=== PATIENT | male | born 1970 | race Caucasian/White ===

== ENCOUNTER 2025-02-26 19:13 | Inpatient (IN) | payer OTHER ==
[~2025-02-26] VITALS: Ht 180.3 cm; Wt 74.0 kg
[2025-02-26] MEDS: NITROGLYCERIN 0.4 MG SL TAB SL ONE (19:30)
[2025-02-26] MEDS: ASPirin-EC 325mg tab PO ONE (19:30)
[2025-02-26 19:57] LABS: Hematocrit 44.4 % (41.0-53.0); Hemoglobin 15.7 g/dL (13.5-17.5); Mean Corpuscular Hemoglobin 32.0 pg (28.0-32.0); Mean Corpuscular Volume 90.7 fL (80.0-100.0); Nucleated Red Blood Cells % 0.1 %
--- NOTE | 2025-02-26 19:58 | ED.PDOC ---
HPI Comments HPI: 55 y/o M, with PMHx of DM present to the ED for CC of chest pain. Patient states, he has been experiencing intermittent substernal chest pain x1 year which intensified this morning (02/26/25) at 0500 radiating to his left arm. Patient reports, when pain intensified he suffered a syncopal episode while in bed, waking up and having had x1 episode of emesis for which he cannot recall the events of. At the time of syncopal episode patient described the chest pain to be 10/10 on the pain scale and "burning in sensation". Patient denies shortness of breath, cough, abdominal pain, or palpitations. No other symptoms or modifying factors are presents at this time. Initial Vitals BP: HR: RR: O2 Sat: Temp: Past Medical history: DM Past Surgical history: Sharpnel removal from the body Medications: METFORMIN Social History: Denies smoking, ETOH, and drug use. Allergies: NKDA HPI: Poor Historian. HAS PAIN IMPROVED SIGNIFICANTLY BY THE TIME I EVALUATED THE PATIENT. CURRENTLY 07/16. REVIEW OF SYSTEMS: CONSTITUTIONAL: Denies acute: fever, diaphoresis, chills, generalized weakness. HEAD: Denies acute: headache, photophobia Eyes: Denies acute: Double vision, vision loss, eye pain, eye discharge. EARS: Denies acute: tinnitus, hearing loss, ear discharge, ear pain, THROAT: Denies acute: sore throat, swelling, difficulty swallowing , pain with swallowing, change in voice. NECK: Denies acute: neck pain, neck swelling, stiff neck. HEART: Denies acute : palpitations, LUNGS: Denies acute: SOB, wheezing, cough, hemoptysis ABDOMEN: Denies acute: abdominal pain, Nausea, diarrhea, melena , hematemesis, hematochezia SKIN: Denies acute: rash, redness, lesions, itchiness. EXTREMITIES: Denies acute: calf pain, numbness, tingling, weakness, denies pain in extremity. Denies acute: Low back pain. Neuro: Denies acute: focal neurological deficit, motor or sensory focal neurological deficit, tremors, seizure like activity, confusion, dizziness, change in mental status, loss of bowel or bladder function, cauda equina like symptoms. : Denies acute: dysuria, hematuria, flank pain, increase in urinary frequency. PSYCH: Denies acute: hallucination, suicidal ideation, homicidal ideation. PHYSICAL EXAM: General: -----mild---acute distress, awake and alert. Head: normocephalic, atraumatic. Neck: supple, trachea is midline, no swelling. Throat: Normal phonation. Eyes:, no erythema, no purulent discharge, no proptosis, no icterus. Heart: regular tachycardic, no significant murmur appreciated. Lungs: no apparent respiratory distress, Able to speak in full sentences. No wheezing, no rhonchi, no crackles. No stridors Clear to auscultation bilaterally. Abdomen: non tender to palpation, non distended, soft, no guarding, no rebound, + bowel sounds. Neuro: Awake, Alert, oriented to name, self, situation, follows commands GCS=15. Speech is normal. Skin: no petechia, no purpura, no cyanosis, non-pale, not jaundice. Lower extremities: --no - Pitting edema no deformity, no focal swelling, no calf TTP. Makes eye contact. moves all four extremities. Face: no apparent facial droop. ED COURSE: DISCLAIMER: This medical document was created using an electronic medical record system with voice recognition software and computerized dictation system. Although this document has been carefully reviewed, there might still be some phonetic and typographical errors. Occasional wrong-word or "sound-alike" substitutions may have occurred due to the inherent limitations of voice recognition software. These areas are purely typographical due to imperfections of the software programs and do not reflect any compromise in the patient's medical care. Please read the chart carefully and recognize, using context, where these substitutions have occurred. Chief Complaint: Chest Pain Time Seen by MD: 19:45 Reviewed Notes: Nurses Notes, Medications, Allergies Allergies: Uncoded Allergies: nkda (Allergy, Unknown, 02/26/25) Home Meds Active Scripts Empagliflozin (Jardiance) 10 Mg Tab, 10 MG PO DAILY for 30 Days, #30 TAB 2 Refills Prov:VERÓNICA PECK APARTMENT HOUSE MANAGER 03/01/25 Carvedilol (Carvedilol) 3.125 Mg Tab, 1 TAB PO BID, #60 TAB 3 Refills Prov:VERÓNICA PECK APARTMENT HOUSE MANAGER 03/01/25 Losartan Potassium (Losartan Potassium) 25 Mg Tab, 25 MG PO DAILY for 30 Days, #30 TAB 3 Refills Prov:VERÓNICA PECK APARTMENT HOUSE MANAGER 03/01/25 Aspirin (Aspir-81) 81 Mg Tab, 1 TAB PO DAILY for 30 Days, #30 TAB 5 Refills Prov:LUCIANO PECKOLPH APARTMENT HOUSE MANAGER 03/01/25 Ticagrelor Base (BRILINTA) 90 Mg Tab, 90 MG PO BID for 30 Days, #60 TAB 3 Refills Prov:VERÓNICA PECK APARTMENT HOUSE MANAGER 03/01/25 Information Source: Patient Mode of Arrival: Ambulatory Severity: Moderate Timing: Months Duration: Since onset Prehospital treatment: None Location: Substernal Radiation: Arm (L) Onset: At Rest Cardiac Risk Factors: Diabetes PE Risk Factors: None History of: None Modifying Factors: Nothing Associated Signs and Symptoms: None Was a procedure done? Was a procedure done?: No CP Differential Dx Differential Diagnosis: N/A Differential Diagnosis: Angina, Chest Wall Pain, Cholelithiasis, Costochondritis, Esophageal reflux/spasm, Gastritis, Other (Ddx include but not limitied to gastritis, musculoskeletal pain, radiculopathy, atypical chest pain, dissection, aneurysm, ACS, unstable angina, hiatal hernia, GERD, anxiety, c ostochondritis, PE, pneumothroax, neoplasm, cardiac ischemia, drug abuse, anemia.) X-Ray, Labs, Meds, VS Vital Signs Date Time Temp Pulse Resp B/P (MAP) Pulse Ox O2 Delivery O2 Flow Rate FiO2 02/26/25 20:31 102 02/26/25 20:30 130/90 02/26/25 20:00 100 02/26/25 19:30 133/100 02/26/25 19:23 109 02/26/25 19:13 98.6 109 18 137/95 100 98.6 Lab Test 02/26/25 20:14 02/26/25 19:23 Range/Units Troponin I High Sensitivity 05886 *H 9993 *H </=54 ng/L White Blood Count 10.3 4.4-10.8 10^3/uL Red Blood Count 4.90 4.5-5.90 10^6/uL Hemoglobin 15.7 13.5-17.5 g/dL Hematocrit 44.4 41.0-53.0 % Mean Corpuscular Volume 90.7 80.0-100.0 fL Mean Corpuscular Hemoglobin 32.0 28.0-32.0 pg Mean Corpuscular Hemoglobin Concent 35.3 32.0-36.0 g/dL Red Cell Distribution Width 12.8 11.8-14.3 % Platelet Count 241 140-450 10^3/uL Mean Platelet Volume 8.6 6.9-10.8 fL Neutrophils (%) (Auto) 58.8 37.0-80.0 % Lymphocytes (%) (Auto) 31.0 10.0-50.0 % Monocytes (%) (Auto) 7.3 0.0-12.0 % Eosinophils (%) (Auto) 2.3 0.0-7.0 % Basophils (%) (Auto) 0.6 0.0-2.0 % Neutrophils # (Auto) 6.1 1.6-8.6 10 ^3/uL Lymphocytes # (Auto) 3.2 0.4-5.4 10 ^3/uL Monocytes # (Auto) 0.8 0-1.3 10 ^3/uL Eosinophils # (Auto) 0.2 0-0.8 10 ^3/uL Basophils # (Auto) 0.1 0-0.2 10 ^3/uL Nucleated Red Blood Cells 0.1 % D-Dimer, Quantitative 0.41 0.0-0.49 mg/L FEU Sodium Level 136 136-145 mmol/L Potassium Level 4.3 3.5-5.1 mmol/L Chloride Level 105 98-107 mmol/L Carbon Dioxide Level 23 20-31 mmol/L Anion Gap 8 5-15 Blood Urea Nitrogen 14 9-23 mg/dL Creatinine 1.38 H 0.700-1.30 mg/dL Glomerular Filtration Rate Calc 60 >90 mL/min BUN/Creatinine Ratio 10.1 10.0-20.0 Serum Glucose 154 H 74-106 mg/dL Calcium Level 9.4 8.7-10.4 mg/dL Magnesium Level 2.1 1.6-2.6 mg/dL Total Bilirubin 0.9 0.2-1.0 mg/dL Aspartate Amino Transferase (AST) 92 H 13-40 U/L Alanine Aminotransferase (ALT) 23 7-40 U/L Alkaline Phosphatase 75 46-116 U/L Total Protein 7.7 5.7-8.2 g/dL Albumin 4.6 3.2-4.8 g/dL Lipase 30 12-53 U/L [facility] [id number] [facility] [address] Ph: [phone] DIAGNOSTIC IMAGING Diagnostic Imaging Report : [id number] Signed PATIENT: LISET GONCALVES ACCT: [id number] UNIT: [id number] : 1970 LOC: ER ROOM / BED: / AGE / SEX: 55 / M ADM STATUS: REG ER SERVICE 26 ORDERING PHYSICIAN: DANYELLE BARAJAS DO PROCEDURE(s): CXRP - CHEST PORTABLE REASON: cp ORDER NUMBER(s): [id number], ACCESSION NUMBER(s): [id number] EXAM: XY CHEST PORTABLE HISTORY: cp TECHNIQUE: 1 view of the chest COMPARISON: None FINDINGS/IMPRESSION: LUNGS: No pleural effusion, consolidation, or pneumothorax MEDIASTINUM: Unremarkable BONES: No acute osseous abnormality OTHER: None ATED BY: DOROTHY WYNN MD DICTATED DATE/TIME: 02/26/252056 SIGNED BY: DOROTHY WYNN MD SIGNED DATE/TIME: 02/26/252056 CC: Time of 1ST Reevaluation: 20:15 Reevaluation 1ST: Unchanged Time of 2ND Reevaluation: 20:49 (Cardiology was reconsulted again at this time with a 2nd EKG. Dr. Marrero asked that we activate the code STEMI for immediate catheterization lab.) Patient Education/Counseling: Diagnosis, Treatment Family Education/Counseling: No Family Present Comments SPOKE WITH CARDIOLOGY AND SHARED THE EKG WITH DR. MARRERO ON-CALL. 19:26 HOUR. HE REVIEWED THE EKG AND STATED THERE IS NO STEMI. HE STATED THIS IS A NORMAL EKG MDM: patient presented with the above HPI.-cardiac-----workup was initiated. patient was found with the above mentioned diagnosis. the following medications were ordered: please refer to order lists of meds and tests obtained by myself Dr. Gauri. Patient ED course and VS have been stabilized. Patient has been reassessed in the ED and remained in a stable condition. Pertinent incidental findings were discussed with the patient and/or family. Patient/family voices understanding and is agreeable with plan. Patient has been observed in the ED adequate length of time to insure improvement/stability. Escalation of care considered: Consideration of escalation to observation or admission Patient was ADMITTED to the medicine team for further evaluation and treatment of their presentation. All the reports of any imaging studies that were ordered by myself were reviewed by myself. SEPSIS Sepsis Screen Date sepsis recognized/suspect: Feb 26, 2025 Time Sepsis recognized/suspect: 1912 Recent Procedure: No On Antibiotic Therapy: No Respiratory Rate >20: No Heart Rate >90: Yes Temp<36 C (96.8 F) or >38.3 C: No SBP <90 or MAP <65 mmHG: No New Acute Mental Status Change: No Is the patient on CPAP, BIPAP,: No Physician Orders Electrocardigram (02/26/25 22:17) Wharf Builder (02/26/25 ) Chest Portable (02/26/25 19:27) Vital Signs Date Time Temp Pulse Resp B/P (MAP) Pulse Ox O2 Delivery O2 Flow Rate FiO2 02/26/25 20:31 102 02/26/25 20:30 130/90 02/26/25 20:00 100 02/26/25 19:30 133/100 02/26/25 19:23 109 02/26/25 19:13 98.6 109 18 137/95 100 98.6 Laboratory Tests Test 02/26/25 19:23 White Blood Count 10.3 10^3/uL (4.4-10.8) Departure 1 Departure Time of Disposition: 19:59 Impression: Primary Impression: Chest pain Additional Impression: STEMI (ST elevation myocardial infarction) Disposition: 09 ADMITTED INPATIENT Admit to: Tele Condition: Guarded e-Prescriptions Empagliflozin (Jardiance) 10 Mg Tab 10 MG PO DAILY for 30 Days, #30 TAB 2 Refills Prov: VERÓNICA PECK APARTMENT HOUSE MANAGER 03/01/25 Carvedilol (Carvedilol) 3.125 Mg Tab 1 TAB PO BID, #60 TAB 3 Refills Prov: VERÓNICA PECK APARTMENT HOUSE MANAGER 03/01/25 Losartan Potassium (Losartan Potassium) 25 Mg Tab 25 MG PO DAILY for 30 Days, #30 TAB 3 Refills Prov: VERÓNICA PECK APARTMENT HOUSE MANAGER 03/01/25 Aspirin (Aspir-81) 81 Mg Tab 1 TAB PO DAILY for 30 Days, #30 TAB 5 Refills Prov: VERÓNICA PECK APARTMENT HOUSE MANAGER 03/01/25 Ticagrelor Base (BRILINTA) 90 Mg Tab 90 MG PO BID for 30 Days, #60 TAB 3 Refills Prov: VERÓNICA PECK APARTMENT HOUSE MANAGER 03/01/25 Discharged With: Self Critical Care Note Critical Care Time?: Yes (1 hr-critical care time only) Heart Score Heart Score: Heart Score Response (Comments) Value History Highly Suspicious [address]-Deviation 2 Age 45-64 1 Risk Factors 1 or 2 risk factors 1 Troponin >3 x's Normal limit 2 Total 8 I personally scribed for DANYELLE BARAJAS DO ([email or web address]) on 02/26/25 at 19:58. Electronically submitted by Denise Reyes [email or web address]). DANYELLE BARAJAS DO Feb 26, 2025 19:58
[2025-02-26 20:07] LABS: Alanine Aminotransferase 23 U/L (7-40); Albumin 4.6 g/dL (3.2-4.8); Alkaline Phosphatase 75 U/L (46-116); Anion Gap 8 (5-15); BUN/Creatinine Ratio 10.1 (10.0-20.0); Bilirubin, Total 0.9 mg/dL (0.2-1.0); Blood Urea Nitrogen 14 mg/dL (9-23); Calcium 9.4 mg/dL (8.7-10.4); Carbon Dioxide 23 mmol/L (20-31); Chloride 105 mmol/L (98-107); Potassium 4.3 mmol/L (3.5-5.1); Sodium 136 mmol/L (136-145); Total Protein 7.7 g/dL (5.7-8.2)
[2025-02-26 20:13] LABS: Glucose 154 mg/dL (74-106)
[2025-02-26 20:33] LABS: Lipase 30.0 U/L (12-53); Magnesium 2.1 mg/dL (1.6-2.6)
[2025-02-26 20:45] VITALS: PULSE 98; RESP 18; O2SAT 97
[2025-02-26] MEDS ORDERED: ONDANSETRON HCL 4 MG/2 ML VIAL IV PRN (20:45)
[2025-02-26] MEDS ORDERED: METOPROLOL SUCCINATE XL 50 MG TAB PO ONE (20:45)
[2025-02-26] MEDS ORDERED: NITROGLYCERIN 0.4 MG SL TAB SL PRN (20:45)
[2025-02-26] MEDS ORDERED: MORPHINE SULFATE INJ 2 MG/ml SYRG IV PRN ×2 (20:45)
[2025-02-26] MEDS: ATORVASTATIN 20 MG TAB PO ONE (20:45)
[2025-02-26] MEDS ORDERED: ACETAMINOPHEN 325 MG TAB PO PRN (20:45)
--- NOTE | 2025-02-26 20:45 | DVHHPRES ---
History of Present Illness Resident Creating Document: SATURNINO BROWN History of Present Illness Kang Ch 55-year-old male patient who presents to the ED with chief complaint of nonradiating, retrosternal oppressive chest pain which started on 02/26/2025 at 8:00 a.m. in functional class four, intensity 10/10, with no relieving factors, associated with diaphoresis, dizziness and dyspnea. His pain has been constant throughout the day, but decreasing in intensity, he decided to visit the ED at 7:20 p.m. after discussing with family. Patient does report presenting similar symptoms approximately three months ago, with same characteristics but less intensity and intermittent, he has not seek medical advice previously. EKG was completed which showed ST-elevation in anterior leads associated with deep Q waves, troponin approximately 58428, cardiology consulted and called code STEMI. Denies any other associated symptoms Past medical history: Diabetes Surgical history: Denies Family history: Heart disease in father and mother Social history: Lives in [place] with 16-year-old daughter (next of kin would be his cousin, Kari), he recently moved to [facility] [place]. Current tobacco abuse (26 pack-year history of smoking). Denies current alcohol and other drug abuse Allergies: Denies Home medication: Metformin Patient seen and examined at bedside. Have explained extensively procedure of coronary angiography, explained risks and benefits, patient agrees on undergoing invasive procedure. Past Medical History Per HPI Past Surgical History Per HPI Family History Per HPI Past Social History Per HPI Review of Systems Review of Systems Per HPI Allergies: Uncoded Allergies: nkda (Allergy, Unknown, 02/26/25) Medications Current Medications Medications Dose Ordered Sig/Stanley Route Start Time Stop Time Status Last Admin Dose Admin Heparin Sodium/ Dextrose 250 ml @ 0 mls/hr Q0M IV 02/26/25 20:15 UNV Exam Vital Signs Vital Signs Date Time Temp Pulse Resp B/P (MAP) Pulse Ox O2 Delivery O2 Flow Rate FiO2 02/26/25 20:30 130/90 02/26/25 20:00 100 02/26/25 19:13 98.6 18 100 98.6 Exam Patient lying in bed, in no acute distress General: Lucid, afebrile, mucosae are moist Cardiovascular: Normal S1 and S2. No murmurs, gallops or rubs Respiratory: Normal ventilation mechanics. Clear lung sounds on auscultation Abdomen: Soft, nontender, no organomegaly, normal bowel sounds MSK/skin: Mobilizes 4 limbs. Skin is dry and warm Neurological: Oriented in 3 spheres. No motor no sensitive deficits. Pupils are isocoric and reactive Labs/Xrays Labs Test 02/26/25 20:14 02/26/25 19:23 Range/Units Troponin I High Sensitivity 35818 *H </=54 ng/L White Blood Count 10.3 4.4-10.8 10^3/uL Red Blood Count 4.90 4.5-5.90 10^6/uL Hemoglobin 15.7 13.5-17.5 g/dL Hematocrit 44.4 41.0-53.0 % Mean Corpuscular Volume 90.7 80.0-100.0 fL Mean Corpuscular Hemoglobin 32.0 28.0-32.0 pg Mean Corpuscular Hemoglobin Concent 35.3 32.0-36.0 g/dL Red Cell Distribution Width 12.8 11.8-14.3 % Platelet Count 241 140-450 10^3/uL Mean Platelet Volume 8.6 6.9-10.8 fL Neutrophils (%) (Auto) 58.8 37.0-80.0 % Lymphocytes (%) (Auto) 31.0 10.0-50.0 % Monocytes (%) (Auto) 7.3 0.0-12.0 % Eosinophils (%) (Auto) 2.3 0.0-7.0 % Basophils (%) (Auto) 0.6 0.0-2.0 % Neutrophils # (Auto) 6.1 1.6-8.6 10 ^3/uL Lymphocytes # (Auto) 3.2 0.4-5.4 10 ^3/uL Monocytes # (Auto) 0.8 0-1.3 10 ^3/uL Eosinophils # (Auto) 0.2 0-0.8 10 ^3/uL Basophils # (Auto) 0.1 0-0.2 10 ^3/uL Nucleated Red Blood Cells 0.1 % D-Dimer, Quantitative 0.41 0.0-0.49 mg/L FEU Sodium Level 136 136-145 mmol/L Potassium Level 4.3 3.5-5.1 mmol/L Chloride Level 105 98-107 mmol/L Carbon Dioxide Level 23 20-31 mmol/L Anion Gap 8 5-15 Blood Urea Nitrogen 14 9-23 mg/dL Creatinine 1.38 H 0.700-1.30 mg/dL Glomerular Filtration Rate Calc 60 >90 mL/min BUN/Creatinine Ratio 10.1 10.0-20.0 Serum Glucose 154 H 74-106 mg/dL Calcium Level 9.4 8.7-10.4 mg/dL Magnesium Level 2.1 1.6-2.6 mg/dL Total Bilirubin 0.9 0.2-1.0 mg/dL Aspartate Amino Transferase (AST) 92 H 13-40 U/L Alanine Aminotransferase (ALT) 23 7-40 U/L Alkaline Phosphatase 75 46-116 U/L Total Protein 7.7 5.7-8.2 g/dL Albumin 4.6 3.2-4.8 g/dL Lipase 30 12-53 U/L SEPSIS Sepsis Screen Date sepsis recognized/suspect: Feb 26, 2025 Time Sepsis recognized/suspect: 1912 Recent Procedure: No On Antibiotic Therapy: No Respiratory Rate >20: No Heart Rate >90: Yes Temp<36 C (96.8 F) or >38.3 C: No SBP <90 or MAP <65 mmHG: No New Acute Mental Status Change: No Is the patient on CPAP, BIPAP,: No Physician Orders Electrocardigram (02/26/25 19:17) Troponin-I Hs (02/26/25 22:17) Electrocardigram (02/26/25 20:17) Electrocardigram (02/26/25 22:17) Statistical Modeler (02/26/25 ) Chest Portable (02/26/25 19:27) Drug Screen (02/26/25 19:59) Heparin Drip/D5w 100units/Ml (02/26/25 20:15) PTPTT (02/26/25 20:39) Admit (02/26/25 20:34) Code Status (02/26/25 20:34) Acetaminophen Tablet (Tylenol Tablet) (02/26/25 20:45) Ondansetron Hcl (Zofran) (02/26/25 20:45) Complete Blood Count (02/27/25 04:00) Comprehensive Metabolic Panel (02/27/25 04:00) Npo (Nothing By Mouth) Diet (02/27/25 Breakfast) Echo 2d Mode Cardiac Dop (02/26/25 20:34) Morphine Sulfate Injection (02/26/25 20:45) Nitroglycerin Sublingual (Ntrostat Subli (02/26/25 20:45) Morphine Sulfate Injection (02/26/25 20:45) Oxygen By Nasal Cannula (02/26/25 20:34) Stat Ekg For Chest Pain (02/26/25 20:34) Notify Md Of Changes From Base (02/26/25 20:34) Finisher Card Tender For 24 Hours (02/26/25 20:34) Emergency Dysrhythmia Protocol (02/26/25 20:34) Rhythm Strips Once Every Shift (02/26/25 20:34) Vitamin D, 25-Hydroxy (02/26/25:34) Vitamin B12 (02/26/25:34) Urinalysis (02/26/25:34) PTPTT (02/26/25:34) Thyroid Stimulating Hormone (02/26/25:34) Phosphorus (02/26/25:34) Magnesium (02/26/25 20:34) Lipid Panel (02/26/25 20:34) Lactic Acid W/ Reflex Order (02/26/25 20:34) Drug Screen (02/26/25:34) Hemoglobin A1c (02/26/25:34) Aspirin Tablet (02/27/25 10:00) Atorvastatin (Lipitor) (02/26/25 20:45) Atorvastatin (Lipitor) (02/26/25 22:00) Metoprolol Xl Succinate (Toprol Xl) (02/27/25 10:00) Metoprolol Xl Succinate (Toprol Xl) (02/26/25 20:45) Vital Signs Date Time Temp Pulse Resp B/P (MAP) Pulse Ox O2 Delivery O2 Flow Rate FiO2 02/26/25 20:30 130/90 02/26/25 20:00 100 02/26/25 19:30 133/100 02/26/25 19:23 109 02/26/25 19:13 98.6 109 18 137/95 100 98.6 Laboratory Tests Test 02/26/25 19:23 White Blood Count 10.3 10^3/uL (4.4-10.8) Medications Medications Dose Ordered Sig/Stanley Route Start Time Stop Time Status Last Admin Dose Admin Aspirin 325 mg ONCE ONCE PO 02/26/25 19:30 02/26/25 19:31 DC 02/26/25 19:30 325 MG Nitroglycerin 0.4 mg ONCE ONCE SL 02/26/25 19:30 02/26/25 19:31 DC 02/26/25 19:30 0.4 MG Assessment/Plan Assessment/Plan Anterior STEMI (Keshav & Cachorro Frazier, patient delay: 11 hours and 20 minutes, door to balloon time pending, total ischemia time pending) EKG shows sinus rhythm with anterior STEMI associated with deep Q-waves. Troponin [id number] Code STEMI was called, patient is sent to the clinical laboratory manager after signing consents Patient was loaded with aspirin (325 mg) and IV heparin (5000 units) Pending P2 Y12 antiplatelets Indicated atorvastatin and metoprolol WILLIE hemodynamically mediated (VMN) We will monitor Discussed risk of requiring hemodialysis, patient understands risks. Diabetes [id number] Ordered hemoglobin A1c Currently on insulin sliding scale Present tight therapeutic window (between 140 and 180 glycemia) Current tobacco dependence Gave her advice on healthy lifestyle habits Counseled strongly on tobacco cessation for over 16 minutes. He has a 26 pack- year history of smoking We will indicate nicotine patch after coronary angiography Goals of care discussed with patient for over18 minutes: Full code status Discussed plan with Dr. Cornejo, patient and nurses: Code STEMI was called, patient's sign consents and agree with coronary angiography. Patient has poor prognosis Critical care time spent including discussion with nursing and family, excluding procedures: 79 minutes Plan discussed with: Patient, Other (Neighbor (Yessenia) and aunt. Nurses) My Orders Orders - SATURNINO BROWN RESIDENT Procedure Category Date Status Time Admit ADMIT 02/26/25 Transmitted 20:34 Code Status CODE 02/26/25 Transmitted 20:34 Acetaminophen Tablet PHA 02/26/25 Logged (Tylenol Tablet) 20:45 Ondansetron Hcl PHA 02/26/25 Logged (Zofran) 20:45 Complete Blood Count LAB 02/27/25 Verified 04:00 Comprehensive LAB 02/27/25 Verified Metabolic Panel 04:00 Npo (Nothing By DIET 02/27/25 Transmitted Mouth) Diet Breakfast Echo 2d Mode Cardiac US 02/26/25 Logged DOP 20:34 Morphine Sulfate PHA 02/26/25 Logged Injection 20:45 Nitroglycerin PHA 02/26/25 Logged Sublingual (Ntrostat 20:45 Morphine Sulfate PHA 02/26/25 Logged Injection 20:45 Oxygen By Nasal RT 02/26/25 Transmitted Cannula 20:34 Stat Ekg For Chest [facility] 02/26/25 In Process Pain 20:34 Notify Of Changes [facility] 02/26/25 In Process From Base 20:34 Finisher Card Tender For [facility] 02/26/25 In Process 24 Hours 20:34 Emergency Dysrhythmia [facility] 02/26/25 In Process Protocol 20:34 Rhythm Strips Once [facility] 02/26/25 In Process Every Shift 20:34 Vitamin D, 25-Hydroxy LAB 02/26/25 Logged 20:34 Vitamin B12 LAB 02/26/25 Logged 20:34 Urinalysis LAB 02/26/25 Logged 20:34 PTPTT LAB 02/26/25 Logged 20:34 Thyroid Stimulating LAB 02/26/25 Logged Hormone 20:34 Phosphorus LAB 02/26/25 Logged 20:34 Magnesium LAB 02/26/25 Logged 20:34 Lipid Panel LAB 02/26/25 Logged 20:34 Lactic Acid W/ Reflex LAB 02/26/25 Logged Order 20:34 Drug Screen LAB 02/26/25 Logged 20:34 Hemoglobin A1c LAB 02/26/25 Logged 20:34 Aspirin Tablet PHA 02/27/25 Logged 10:00 Atorvastatin (Lipitor) [facility] 02/26/25 Transmitted 20:45 Atorvastatin (Lipitor) PHA 02/26/25 Transmitted 22:00 Metoprolol Xl PHA 02/27/25 Transmitted Succinate (Toprol Xl) 10:00 Metoprolol Xl PHA 02/26/25 Transmitted Succinate (Toprol Xl) 20:45 Date of Service: Feb 26, 2025 Billing Provider: BJORN CORNEJO MD Common Visit Codes: 82218-[id number] INP/OBS CARE (HIGH) Secondary Visit Codes: 55415-[id number] CARE PLAN 30 MINUTES SATURNINO BROWN RESIDENT Feb 26, 2025 20:45
--- NOTE | 2025-02-26 21:00 | DVH ---
EXAM: XY CHEST PORTABLE HISTORY: cp TECHNIQUE: 1 view of the chest COMPARISON: None FINDINGS/IMPRESSION: LUNGS: No pleural effusion, consolidation, or pneumothorax MEDIASTINUM: Unremarkable BONES: No acute osseous abnormality OTHER: None
[2025-02-26] MEDS: HEPARIN SODIUM (PORCINE) 5000 UNITS/ML 1ML VIAL IV ONE (21:18)
[2025-02-26] MEDS: HEPARIN SODIUM (PORCINE) 5000 UNITS/ML 1ML VIAL ONE (21:19)
[2025-02-26] MEDS: HEPARIN IN NS 1000Units/500mL 1,500 ML ONE (21:24)
[2025-02-26] MEDS: IODIXANOL 320MG/ML 100ML BTL IV ONE ×2 (21:24→22:39)
[2025-02-26] MEDS: LIDOCAINE 2%HCL (LOCAL ANESTH.) INJ 20ML MDV ONE (21:24)
[2025-02-26] MEDS: fentaNYL CITRATE 100 MCG/2 ML VL ONE (21:26)
[2025-02-26] MEDS: MIDAZOLAM HCL 2MG/2ML 2ml VIAL (1mg/ml) ONE (21:26)
[2025-02-26] MEDS: SODIUM CHL 0.9% 50 ML ONE ×2 (21:27→22:31)
[2025-02-26] MEDS: ANGIOMAX 250 MG VIAL IV ONE ×2 (21:27→22:31)
[2025-02-26 21:38] LABS: INR 1.05 (0.9-1.15); Partial Thromboplastin Time 29.3 SEC (24.5-34.5); Prothrombin Time 11.1 sec (9.3-11.8); Triglycerides 99.0 mg/dL (< 150)
[2025-02-26 21:39] LABS: Magnesium 2.1 mg/dL (1.6-2.6)
[2025-02-26 21:43] LABS: Cholesterol 210.0 mg/dL (< 200); HDL Cholesterol 33.0 mg/dL (40-59)
[2025-02-26] MEDS: ATROPINE SULF 1 MG/10ml SYR ONE (21:59)
[2025-02-26] MEDS ORDERED: DEXTROSE (50%) 50ML SYRG IV PRN (22:00)
[2025-02-26] MEDS: EPTIFIBATIDE INJ (2MG/ML) 10ML VIAL IV ONE (22:05)
[2025-02-26] MEDS: TICAGRELOR 90 MG TAB ONE (22:27)
[2025-02-26] MEDS ORDERED: HEPARIN DRIP/D5W 100UNITS/ML 250 ML IV SCH ×2 (22:30→22:45)
[2025-02-26 22:55] VITALS: BP 120/90; PULSE 93; RESP 12; TEMP 97.6; O2SAT 97
[2025-02-26 23:10] VITALS: BP 119/89; PULSE 90; RESP 16; O2SAT 95
[2025-02-26 23:25] VITALS: BP 119/88; PULSE 90; RESP 16; O2SAT 95
[2025-02-26 23:40] VITALS: BP 118/90; PULSE 93; RESP 16; O2SAT 95
[2025-02-26 23:55] VITALS: BP 119/86; PULSE 87; RESP 16; O2SAT 95
--- NOTE | 2025-02-26 23:57 | ECG ---
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
[2025-02-27] VITALS (53 sets, daily range): BP systolic 90–137; BP diastolic 39–98; PULSE 73–130; RESP 7–25; TEMP 97.9–98.3; O2SAT 93–100
[2025-02-27] MEDS: ACCU-CHEK COMFORT CURVE STRIP VI SCH
[2025-02-27] MEDS: InsuLIN REG 1unit/0.01ml Soln (100units/ml) SC SCH
--- NOTE | 2025-02-27 00:02 | DVHOP ---
DATE OF SURGERY: 02/26/2025 TECHNIQUE PERFORMED: * Code STEMI. * Insertion of a 6-Japanese arterial line from the right femoral artery. * Management of conscious sedation. * Fluoroscopic guidance and supervision. * Left heart cath. * Left ventriculogram. * [place] selective left and right coronary angiography. COMPLICATIONS: None. ASSISTANTS: Assisted by Charles and Aishwarya. The time it was performed was approximately 10:00 p.m. INDICATIONS: As follows: Acute anterior wall myocardial infarction. Code STEMI was called. DESCRIPTION OF PROCEDURE: Procedure, risks, benefits discussed in a standard manner. The patient's right groin was shaved, cleaned with soap and Betadine. Lidocaine was given. A 6-Japanese arterial line was placed under fluoroscopy at the very first attempt anterior approach. We have put a JR4 catheter and the right coronary angio done. With the help of the XB 3.5 6-Japanese guiding catheter, we decided to do left coronary angiogram. At the end of the procedure, we also with the help of a pigtail catheter complete left heart cath also had been done. The left ventriculogram was done in the right anterior oblique view, a total of 20 mL of dye. Post-LV gram, left ventricular angiography had been performed with the help of pull-through technique. Aortic pressure was also performed. J-wire was passed. The pigtail catheter also has been discontinued. Procedure completed. IMPRESSION: * Normal left main. * Left anterior descending artery. It is from proximal to the mid region have underlying 99% narrowing, LIEN grade 2 flow. Diagonal arteries are normal. * The circumflex artery and obtuse marginal artery are normal. * The right coronary artery is a large dominant artery with the region of the right coronary artery has underlying 85% plus narrowing. * The ejection fraction of the left ventricle is maximum 15%, dilated left ventricle, severe global hypokinesis. PLAN OF ACTION: We advised this patient to undergo the intervention on the left anterior descending artery at this time because of an acute anterior wall myocardial infarction. Margaret Marrero MD MP/ALONDRA TID: [id number] RECEIPT: [id number]
--- NOTE | 2025-02-27 00:35 | DVHINCON2 ---
Date of service: Feb 26, 2025 Referring Physician Pk Reason for Consultation STEMI History of Present Illness This is a 55-year-old male without any PMH who presents to the ED with a complaint of nonradiating, retrosternal oppressive chest pain which started on 02/26/2025 at 8:00 a.m. intensity 10/10, with no relieving factors. Patient reported associated diaphoresis, dizziness and dyspnea. His pain has been const ant throughout the day, but decreasing in intensity, he decided to visit the ED at 7:20 p.m. after discussing with family. Patient does report presenting similar symptoms approximately three months ago, with same characteristics but less intensity and intermittent, he has not seek medical advice previously. EKG was showed ST-elevation in anterior leads associated with deep Q waves. Troponin [id number]. Code STEMI was called. I evaluated the patient at bedside within a few minutes. Patient will emergently be taken to [facility] and will be admitted to the ICU. Allergies: Uncoded Allergies: nkda (Allergy, Unknown, 02/26/25) Current Medications Current Medications Medications (Trade) Dose Ordered Sig/Stanley Route PRN Reason Start Time Stop Time Status Last Admin Heparin Sodium/ Dextrose 250 ml @ 10 mls/hr Q24H IV 02/26/25 22:30 02/26/25 22:35 DC Acetaminophen (Tylenol Tablet) 325 mg Q4HP PRN PO MILD PAIN (1-3 PAIN SCALE) 02/26/25 20:45 Ondansetron HCl (Zofran) 4 mg Q4HP PRN IV NAUSEA / VOMITING 02/26/25 20:45 Morphine Sulfate 2 mg Q4HPRN PRN IV SEVERE PAIN (7-10 PAIN SCALE) 02/26/25 20:45 Nitroglycerin (Ntrostat Sublingual) 0.4 mg Q5MINP PRN SL FOR CHEST PAIN 02/26/25 20:45 Morphine Sulfate 2 mg Q30M PRN IV FOR CHEST PAIN 02/26/25 20:45 Aspirin 81 mg DAILY PO 02/27/25 10:00 Atorvastatin Calcium (Lipitor) 40 mg HS PO 02/27/25 22:00 Metoprolol Succinate (Toprol Xl) 25 mg DAILY PO 02/27/25 10:00 02/26/25 22:57 DC Diagnostic Test (Pha) (Accu-Chek Comfort Curve T) 1 strip Q6HR 02/27/25 00:00 Insulin Human Regular (InsuLIN R) Q6HR SC 02/27/25 00:00 Dextrose 50 ml UD PRN IV Blood Sugar LESS THAN 60 02/26/25 22:00 Heparin Sodium/ Dextrose 250 ml @ 10 mls/hr Q24H IV 02/26/25 22:45 02/26/25 23:36 DC Carvedilol (Coreg Tablet) 3.125 mg Q12HR PO 02/27/25 10:00 Ticagrelor (Brilinta) 90 mg BID PO 02/27/25 10:00 Empaglifozin (Jardiance) 10 mg DAILY PO 02/27/25 10:00 Losartan Potassium (Cozaar Tablet) 25 mg DAILY PO 02/27/25 10:00 Pantoprazole Sodium (Protonix) 40 mg DAILY IV 02/27/25 10:00 Enoxaparin Sodium (Lovenox) 40 mg DAILY SC 02/27/25 10:00 Metoprolol Succinate (Toprol Xl) 25 mg DAILY PO 02/27/25 10:00 02/26/25 23:54 DC Furosemide (Lasix Injection) 20 mg BIDD IV 02/27/25 06:00 Review of Systems Denies acute: fever, diaphoresis, chills, generalized weakness. HEAD: Denies acute: headache, photophobia Eyes: Denies acute: Double vision, vision loss, eye pain, eye discharge. EARS: Denies acute: tinnitus, hearing loss, ear discharge, ear pain, THROAT: Denies acute: sore throat, swelling, difficulty swallowing , pain with swallowing, change in voice. NECK: Denies acute: neck pain, neck swelling, stiff neck. HEART: Denies acute : palpitations, LUNGS: Denies acute: SOB, wheezing, cough, hemoptysis ABDOMEN: Denies acute: abdominal pain, Nausea, diarrhea, melena , hematemesis, hematochezia SKIN: Denies acute: rash, redness, lesions, itchiness. EXTREMITIES: Denies acute: calf pain, numbness, tingling, weakness, denies pain in extremity. Denies acute: Low back pain. Neuro: Denies acute: focal neurological deficit, motor or sensory focal neurological deficit, tremors, seizure like activity, confusion, dizziness, change in mental status, loss of bowel or bladder function, cauda equina like symptoms. : Denies acute: dysuria, hematuria, flank pain, increase in urinary frequency. PSYCH: Denies acute: hallucination, suicidal ideation, homicidal ideation. Vital Signs Vital Signs Date Time Temp Pulse Resp B/P (MAP) Pulse Ox O2 Delivery O2 Flow Rate FiO2 02/26/25 23:55 87 16 119/86 (97) 95 02/26/25 22:55 97.6 97.6 02/26/25 20:45 Room Air* 0 21 Physical Exam GENERAL: Alert and oriented x 3. No acute distress. EYES: PERRL, EOMI. Anicteric. HENT: Moist mucous membranes. LUNGS: Clear to auscultation bilaterally. CARDIOVASCULAR: Regular rate and rhythm. ABDOMEN: Soft, non-tender and non-distended. EXTREMITIES: No edema. NEUROLOGIC: No focal neurological deficits. SKIN: Warm, dry. Labs/Diagnostic Data Labs Test 02/26/25 20:56 02/26/25 20:14 02/26/25 19:23 Range/Units Prothrombin Time 11.1 9.3-11.8 sec Prothrombin Time INR 1.05 0.9-1.15 Activated Partial Thromboplast Time 29.3 24.5-34.5 SEC Hemoglobin A1c 6.6 H <5.7 % A1C Lactic Acid Level 1.4 0.4-2.0 mmol/L Phosphorus Level 2.7 2.4-5.1 mg/dL Magnesium Level 2.1 1.6-2.6 mg/dL Triglycerides Level 99 < 150 mg/dL Cholesterol Level 210 H < 200 mg/dL LDL Cholesterol 172 H < 100 mg/dL HDL Cholesterol 33 L 40-59 mg/dL Vitamin B12 Level 356 211-911 pg/mL Vitamin D 25-Hydroxy 23.4 L 30.0-100 ng/mL Thyroid Stimulating Hormone (TSH) 2.20 0.55-4.78 uIU/mL Troponin I High Sensitivity 57387 *H </=54 ng/L White Blood Count 10.3 4.4-10.8 10^3/uL Red Blood Count 4.90 4.5-5.90 10^6/uL Hemoglobin 15.7 13.5-17.5 g/dL Hematocrit 44.4 41.0-53.0 % Mean Corpuscular Volume 90.7 80.0-100.0 fL Mean Corpuscular Hemoglobin 32.0 28.0-32.0 pg Mean Corpuscular Hemoglobin Concent 35.3 32.0-36.0 g/dL Red Cell Distribution Width 12.8 11.8-14.3 % Platelet Count 241 140-450 10^3/uL Mean Platelet Volume 8.6 6.9-10.8 fL Neutrophils (%) (Auto) 58.8 37.0-80.0 % Lymphocytes (%) (Auto) 31.0 10.0-50.0 % Monocytes (%) (Auto) 7.3 0.0-12.0 % Eosinophils (%) (Auto) 2.3 0.0-7.0 % Basophils (%) (Auto) 0.6 0.0-2.0 % Neutrophils # (Auto) 6.1 1.6-8.6 10 ^3/uL Lymphocytes # (Auto) 3.2 0.4-5.4 10 ^3/uL Monocytes # (Auto) 0.8 0-1.3 10 ^3/uL Eosinophils # (Auto) 0.2 0-0.8 10 ^3/uL Basophils # (Auto) 0.1 0-0.2 10 ^3/uL Nucleated Red Blood Cells 0.1 % D-Dimer, Quantitative 0.41 0.0-0.49 mg/L FEU Sodium Level 136 136-145 mmol/L Potassium Level 4.3 3.5-5.1 mmol/L Chloride Level 105 98-107 mmol/L Carbon Dioxide Level 23 20-31 mmol/L Anion Gap 8 5-15 Blood Urea Nitrogen 14 9-23 mg/dL Creatinine 1.38 H 0.700-1.30 mg/dL Glomerular Filtration Rate Calc 60 >90 mL/min BUN/Creatinine Ratio 10.1 10.0-20.0 Serum Glucose 154 H 74-106 mg/dL Calcium Level 9.4 8.7-10.4 mg/dL Total Bilirubin 0.9 0.2-1.0 mg/dL Aspartate Amino Transferase (AST) 92 H 13-40 U/L Alanine Aminotransferase (ALT) 23 7-40 U/L Alkaline Phosphatase 75 46-116 U/L Total Protein 7.7 5.7-8.2 g/dL Albumin 4.6 3.2-4.8 g/dL Lipase 30 12-53 U/L Assessment Anterior STEMI. WILLIE. Diabetes [id number]. Current tobacco dependence. Plan/Recommendation I agree with your ongoing assessment and care of plan. Emergency cardiac cath. Risks an benefits were discussed with the patient. Aspirin, Lipitor. Coreg. DVT and GI prophylactics. Losartan. Morphine for pain management. Nitro SL. Additional plan as per the hospital course. Critical care time of 90 minutes provided to include time spent evaluation of patient at bedside, when appropriate patient/family education for diagnosis, treatment plan, review of pertinent medical information and discussion of care with specialty providers and PCP. Mechanical ventilator parameters, treatment an d adjustments have personally been reviewed by me and treatment plan by coutierier has also been reviewed. Plan discussed with: Patient ANDREW BHATT MD Feb 27, 2025 00:35
[2025-02-27] MEDS: FUROSEMIDE 20 MG/2 ML VIAL IV ONE (02:27)
[2025-02-27 05:15] LABS: Hematocrit 45.1 % (41.0-53.0); Hemoglobin 16.0 g/dL (13.5-17.5); Mean Corpuscular Hemoglobin 32.2 pg (28.0-32.0); Mean Corpuscular Volume 91.0 fL (80.0-100.0); Nucleated Red Blood Cells % 0.2 %
[2025-02-27 05:29] LABS: Alanine Aminotransferase 26 U/L (7-40); Albumin 4.6 g/dL (3.2-4.8); Alkaline Phosphatase 75 U/L (46-116); Anion Gap 13 (5-15); BUN/Creatinine Ratio 6.9 (10.0-20.0); Blood Urea Nitrogen 9 mg/dL (9-23); Calcium 9.5 mg/dL (8.7-10.4); Carbon Dioxide 20 mmol/L (20-31); Chloride 103 mmol/L (98-107); Potassium 3.6 mmol/L (3.5-5.1); Total Protein 8.0 g/dL (5.7-8.2)
[2025-02-27 05:31] LABS: Bilirubin, Total 1.8 mg/dL (0.2-1.0); Glucose 146 mg/dL (74-106); Sodium 136 mmol/L (136-145)
[2025-02-27] MEDS: FUROSEMIDE 20 MG/2 ML VIAL IV SCH (06:23)
--- NOTE | 2025-02-27 07:08 | ECG ---
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
--- NOTE | 2025-02-27 08:38 | DVHOP ---
DATE OF SURGERY: 02/26/2025 TECHNIQUE PERFORMED: * Code STEMI. * Insertion of a 6-Bulgarian arterial line from the left femoral artery. * Management of conscious sedation. * Left coronary artery angiography. * Mechanical thrombectomy of the left anterior descending artery with the help of the [place] catheter. * Balloon angioplasty of the left anterior descending artery with 2.5 x 12 mm length semi-compliant balloon. * Stenting and angioplasty of the left anterior descending artery with 3.0 x 18 mm length [place] stent and followed by 3.0 x 12 mm length [place] stent in the proximal region (TOTAL OF TWO STENTS WERE DEPLOYED IN THE LEFT ANTERIOR DESCENDING ARTERY). * Intracoronary administration of Integrilin and intracoronary administration of the nicardipine. * Right iliofemoral artery angiography. * Arteriotomy Angio-Seal of the right femoral artery. ASSISTANTS: Assisted by our staff over here is Teresita Tamez Elizabeth and Tasia. COMPLICATIONS: None. INDICATIONS: Code STEMI, acute anterior wall myocardial infarction. DESCRIPTION OF PROCEDURE: Risks and benefits discussed in standard manner. The right groin was shaved, cleaned with soap and Betadine. Lidocaine was given. A 6-Bulgarian arterial line also had been placed in the right femoral artery. In the standard manner, we have put an XB 3.5 6-Bulgarian guiding catheter. IV Angiomax was given. Runthrough wire was passed. [place] catheter was placed. Mechanical thrombectomy was done. Subsequently, now we put a balloon 2.5 x 12, balloon angioplasty was done. Subsequently, we put stent 3.0 x 18 mm length [place] stent from proximal to mid region and the stent has been fully deployed, a total of 15 atmospheres. Stent size was made to 3.15 mm in size. Subsequently, now we put intravascular ultrasound. We found there was still a gap between the stent and the media, so we put 3.0 x 15 mm length noncompliant balloon and we made the stent size to 3.25 mm. Subsequently, we have also the lesion noted in the proximal region, so we put another stent 3.0 x 12 mm overlapping the first stent, taken up to 15 atmospheres, 17 atmospheres and the balloon had been taken up to the stent size was made up to 3.25 mm proximally also. 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 CONCLUSION: Prior to performing the procedure #1, the left anterior descending artery had underlying 99% narrowing proximally and just eventually distal to it, LIEN grade 2 flow and type C lesion, thrombus formation. Post-procedure, LIEN grade 3 flow and residual stenosis is 0%, no spasm, no dissection, no thrombosis. PLAN OF ACTION: Advised for aspirin, Brilinta, beta-annelise, and cholesterol-reducing medicine, control of diabetes. Margaret Marrero MD MP/LINNEA/YOLANDA/HUNG TID: [id number] RECEIPT: [id number] MTDYesi
[2025-02-27] MEDS ORDERED: METOPROLOL SUCCINATE XL 50 MG TAB PO SCH ×2 (10:00)
[2025-02-27] MEDS: OPTISON 3ml Vial for INJ IV ONE (10:03)
[2025-02-27] MEDS: CARVEDILOL 3.125 MG TAB PO SCH (10:32)
[2025-02-27] MEDS: EMPAGLIFLOZIN 10 MG TAB PO SCH (10:42)
[2025-02-27] MEDS: LOSARTAN POTASSIUM 25 MG TAB PO SCH (10:42)
[2025-02-27] MEDS: PANTOPRAZOLE 40 MG/10 ML VIAL INJ IV SCH (10:43)
[2025-02-27] MEDS: TICAGRELOR 90 MG TAB PO SCH (10:43)
[2025-02-27] MEDS: ENOXAPARIN SOD 40 MG/0.4 ML SYRINGE SC SCH (10:44)
--- NOTE | 2025-02-27 14:11 | DVHPN2 ---
Subjective Patient denies any symptoms at this time. Reviewed: Care Plan, H&P, Labs, Medications Changes from previous H/P or p: No Changes General: Per HPI Objective Vitals Vital Signs Date Time Temp Pulse Resp B/P (MAP) Pulse Ox O2 Delivery O2 Flow Rate FiO2 02/27/25 10:42 95/61 02/27/25 10:32 84 02/27/25 10:30 18 99 Room Air* 0 21 02/27/25 08:00 98.2 98.2 Intake/Output Intake and Output 02/27/25 07:00 Intake Total 250 ml Output Total 1630 ml Balance -1380 ml Intake Oral 250 ml Output Urine Total 1630 ml General Appearance: Alert, Oriented X3, Cooperative, mild distress HEENT: Atraumatic, PERRLA Cardiovascular: Normal S1, Normal S2 Abdomen: Normal bowel sounds, Soft, No tenderness Musculoskeletal: Normal sensory function, Normal motor function Extremities: No clubbing, No cyanosis, No edema, Normal pulses Skin: Dry, Intact Psych/Mental Status: Mental status NL, Mood NL Medications Current Medications Medications Dose Ordered Sig/Stanley Route Start Time Stop Time Status Last Admin Dose Admin Acetaminophen 325 mg Q4HP PRN PO 02/26/25 20:45 Ondansetron HCl 4 mg Q4HP PRN IV 02/26/25 20:45 Morphine Sulfate 2 mg Q4HPRN PRN IV 02/26/25 20:45 Nitroglycerin 0.4 mg Q5MINP PRN SL 02/26/25 20:45 Morphine Sulfate 2 mg Q30M PRN IV 02/26/25 20:45 Aspirin 81 mg DAILY PO 02/27/25 10:00 02/27/25 10:42 81 MG Atorvastatin Calcium 40 mg HS PO 02/27/25 22:00 Diagnostic Test (Pha) 1 strip Q6HR 02/27/25 00:00 02/27/25 12:52 1 STRIP Insulin Human Regular Q6HR SC 02/27/25 00:00 02/27/25 12:52 2 UNITS Dextrose 50 ml UD PRN IV 02/26/25 22:00 Carvedilol 3.125 mg Q12HR PO 02/27/25 10:00 Ticagrelor 90 mg BID PO 02/27/25 10:00 02/27/25 10:43 90 MG Empaglifozin 10 mg DAILY PO 02/27/25 10:00 02/27/25 10:42 10 MG Losartan Potassium 25 mg DAILY PO 02/27/25 10:00 02/27/25 10:42 25 MG Pantoprazole Sodium 40 mg DAILY IV 02/27/25 10:00 02/27/25 10:43 40 MG Enoxaparin Sodium 40 mg DAILY SC 02/27/25 10:00 02/27/25 10:44 40 MG Furosemide 20 mg BIDD IV 02/27/25 06:00 02/27/25 06:23 20 MG Laboratory Results Laboratory Tests 02/27/25 04:30 Chemistry Test 02/26/25 19:23 02/26/25 20:56 02/27/25 04:30 Albumin 4.6 g/dL (3.2-4.8) 4.6 g/dL (3.2-4.8) Calcium Level 9.4 mg/dL (8.7-10.4) 9.5 mg/dL (8.7-10.4) Magnesium Level 2.1 mg/dL (1.6-2.6) 2.1 mg/dL (1.6-2.6) Total Protein 7.7 g/dL (5.7-8.2) 8.0 g/dL (5.7-8.2) Phosphorus Level 2.7 mg/dL (2.4-5.1) Coagulation Test 02/26/25 19:23 02/26/25 20:56 D-Dimer, Quantitative 0.41 mg/L FEU (0.0-0.49) Prothrombin Time 11.1 sec (9.3-11.8) Prothrombin Time INR 1.05 (0.9-1.15) Activated Partial Thromboplast Time 29.3 SEC (24.5-34.5) Lipid panel Test 02/26/25 19:23 02/26/25 20:56 Lipase 30 U/L (12-53) Cholesterol Level 210 mg/dL (< 200) H HDL Cholesterol 33 mg/dL (40-59) L Triglycerides Level 99 mg/dL (< 150) LFT Test 02/26/25 19:23 02/27/25 04:30 Alanine Aminotransferase (ALT) 23 U/L (7-40) 26 U/L (7-40) Alkaline Phosphatase 75 U/L (46-116) 75 U/L (46-116) Aspartate Amino Transferase (AST) 92 U/L (13-40) H 158 U/L (13-40) H Total Bilirubin 0.9 mg/dL (0.2-1.0) 1.8 mg/dL (0.2-1.0) H HgA1c, TSH Test 02/26/25 20:56 Hemoglobin A1c 6.6 % A1C (<5.7) H Thyroid Stimulating Hormone (TSH) 2.20 uIU/mL (0.55-4.78) Microbiology Microbiology Date/Time Source Procedure Growth Status 02/27/25 01:21 Nose MRSA Screen - Final Complete Labs and/or images reviewed: Labs reviewed by me, Image(s) reviewed by me Assessment/Plan Assessment/Plan Impression: -STEMI involving LAD -multivessel disease with RCA disease -nicotine dependence -diabetes mellitus -acute systolic heart failure Plan: -patient is status post PTCA and stent placement to LAD. -continue dual antiplatelet therapy -continue statin -implement guideline directed medical therapy. Patient was borderline hypotensive. Monitor for cardiogenic shock -IV diuresis -smoking cessation education: 10 minutes spent discussing with the patient the need to stop smoking -regular insulin sliding scale -repeat labs in a.m. -keep patient in ICU overnight Critical care time spent with patient discussing and formulating plan of care: 40 minutes. This does not include time spent performing procedures. This medical document was created using an electronic medical record system with [employer] dictation system. Although this document has been carefully reviewed, there may still be some phonetic and typographical errors. These areas are purely typographical due to imperfections of the software programs, and do not reflect any compromise in the patient's medical care. Plan discussed with: Patient, Other (RN) My Orders Orders - VERÓNICA PECK NP Procedure Category Date Status Time Cardiac DIET 02/27/25 Transmitted Diet-2gna,Lofat,Lochol Lunch Date of Service: Feb 27, 2025 Billing Provider: VERÓNICA PECK NP Common Visit Codes: 97637-[id number] CARE 30-74 MIN Secondary Visit Codes: 76048-YXRRK CHNG SMOKING >10MIN VERÓNICA PECK NP Feb 27, 2025 14:11
--- NOTE | 2025-02-27 21:18 | DVHPN2 ---
Progress Note - Dictate Date Seen: Feb 27, 2025 Medical Necessity Reason Pt with a Central, PICC or Fol: No Subjective Patient was seen and evaluated in follow up in the ICU. Patient underwent left heart cat, [place] selective left and right coronary angiography, left coronary artery angiography, mechanical thrombectomy of the left anterior descending artery with the help of the [place] catheter, balloon angioplasty of the left anterior descending artery, stenting and angioplasty of the left anterior descending artery, intracoronary administration of Integrilin and intracoronary administration of the nicardipine. Prior to performing the procedure #1, the left anterior descending artery had underlying 99% narrowing proximally and just eventually distal to it, LIEN grade 2 flow and type C lesion, thrombus formation. Post-procedure, LIEN grade 3 flow and residual stenosis is 0%, no spasm, no dissection, no thrombosis. Advised for aspirin, Brilinta, beta- annelise, and cholesterol-reducing medicine, control of diabetes. Troponin > 41210. vital signs Vital Sign Date Time Temp Pulse Resp B/P (MAP) Pulse Ox O2 Delivery O2 Flow Rate FiO2 02/27/25 10:42 95/61 02/27/25 10:32 84 02/27/25 10:30 18 99 Room Air* 0 21 02/27/25 08:00 98.2 98.2 Total Intake and Output 02/26/25 02/26/25 02/27/25 15:00 23:00 07:00 Intake Total 250 ml Output Total 1630 ml Balance -1380 ml medications Current Medications Medications Dose Ordered Sig/Stanley Route Start Time Stop Time Status Last Admin Dose Admin Acetaminophen 325 mg Q4HP PRN PO 02/26/25 20:45 Ondansetron HCl 4 mg Q4HP PRN IV 02/26/25 20:45 Morphine Sulfate 2 mg Q4HPRN PRN IV 02/26/25 20:45 Nitroglycerin 0.4 mg Q5MINP PRN SL 02/26/25 20:45 Morphine Sulfate 2 mg Q30M PRN IV 02/26/25 20:45 Aspirin 81 mg DAILY PO 02/27/25 10:00 02/27/25 10:42 81 MG Atorvastatin Calcium 40 mg HS PO 02/27/25 22:00 Diagnostic Test (Pha) 1 strip Q6HR 02/27/25 00:00 02/27/25 12:52 1 STRIP Insulin Human Regular Q6HR SC 02/27/25 00:00 02/27/25 12:52 2 UNITS Dextrose 50 ml UD PRN IV 02/26/25 22:00 Carvedilol 3.125 mg Q12HR PO 02/27/25 10:00 Ticagrelor 90 mg BID PO 02/27/25 10:00 02/27/25 10:43 90 MG Empaglifozin 10 mg DAILY PO 02/27/25 10:00 02/27/25 10:42 10 MG Losartan Potassium 25 mg DAILY PO 02/27/25 10:00 02/27/25 10:42 25 MG Pantoprazole Sodium 40 mg DAILY IV 02/27/25 10:00 02/27/25 10:43 40 MG Enoxaparin Sodium 40 mg DAILY SC 02/27/25 10:00 02/27/25 10:44 40 MG Furosemide 20 mg BIDD IV 02/27/25 06:00 02/27/25 06:23 20 MG objective GENERAL: Alert and oriented x 3. No acute distress. EYES: PERRL, EOMI. Anicteric. HENT: Moist mucous membranes. LUNGS: Clear to auscultation bilaterally. CARDIOVASCULAR: Regular rate and rhythm. ABDOMEN: Soft, non-tender and non-distended. EXTREMITIES: No edema. NEUROLOGIC: No focal neurological deficits. SKIN: Warm, dry. laboratory and microbiology Laboratory Tests 02/27/25 04:30 Test 02/27/25 04:30 Range/Units Serum Glucose 146 H 74-106 mg/dL Problem List Anterior STEMI. WILLIE. Diabetes [id number]. Current tobacco dependence. Assessment/Plan Continued all current supportive medical care. Aspirin, Lipitor, Brilinta. Coreg, Losartan. DVT and GI prophylactics. Diuretics with Lasix. Nitro SL. Morphine for pain management. Additional plan as per the hospital course. Critical care time of 45 minutes provided to include time spent evaluation of patient at bedside, when appropriate patient/family education for diagnosis, treatment plan, review of pertinent medical information and discussion of care with specialty providers and PCP. Plan discussed with: Patient ANDREW BHATT MD Feb 27, 2025 14:30
[2025-02-27] MEDS: ATORVASTATIN 20 MG TAB PO SCH (22:06)
[2025-02-28] VITALS (29 sets, daily range): BP systolic 91–118; BP diastolic 56–83; PULSE 50–116; RESP 8–27; TEMP 97.6–98.2; O2SAT 92–99
[2025-02-28 05:01] LABS: Hematocrit 46.1 % (41.0-53.0); Hemoglobin 16.3 g/dL (13.5-17.5); Mean Corpuscular Hemoglobin 31.9 pg (28.0-32.0); Mean Corpuscular Volume 90.2 fL (80.0-100.0); Nucleated Red Blood Cells % 0.2 %
[2025-02-28 05:04] LABS: Alanine Aminotransferase 21 U/L (7-40); Alkaline Phosphatase 71 U/L (46-116); Anion Gap 10 (5-15); BUN/Creatinine Ratio 11.0 (10.0-20.0); Blood Urea Nitrogen 17 mg/dL (9-23); Calcium 9.5 mg/dL (8.7-10.4); Carbon Dioxide 23 mmol/L (20-31); Chloride 104 mmol/L (98-107); Potassium 3.9 mmol/L (3.5-5.1); Sodium 137 mmol/L (136-145); Total Protein 7.8 g/dL (5.7-8.2)
[2025-02-28 05:05] LABS: Albumin 4.5 g/dL (3.2-4.8); Glucose 122 mg/dL (74-106)
[2025-02-28 05:11] LABS: Bilirubin, Total 1.4 mg/dL (0.2-1.0)
[2025-02-28] MEDS ORDERED: DEXTROSE (50%) 50ML SYRG IV PRN (08:30)
--- NOTE | 2025-02-28 09:17 | DVHPN2 ---
Subjective Patient denies any symptoms at this time. Reviewed: Care Plan, H&P, Labs, Medications Changes from previous H/P or p: No Changes General: Per HPI Objective Vitals Vital Signs Date Time Temp Pulse Resp B/P (MAP) Pulse Ox O2 Delivery O2 Flow Rate FiO2 02/28/25 08:30 80 8 103/74 (84) 99 02/28/25 08:15 Room Air* 0 21 02/28/25 08:00 98.0 98.0 Intake/Output Intake and Output 02/28/25 07:00 Intake Total 1230 ml Output Total 1600 ml Balance -370 ml Intake Oral 1230 ml Output Urine Total 1600 ml # Voids 1 General Appearance: Alert, Oriented X3, Cooperative, mild distress HEENT: Atraumatic, PERRLA Cardiovascular: Normal S1, Normal S2 Abdomen: Normal bowel sounds, Soft, No tenderness Musculoskeletal: Normal sensory function, Normal motor function Extremities: No clubbing, No cyanosis, No edema, Normal pulses Skin: Dry, Intact Psych/Mental Status: Mental status NL, Mood NL Medications Current Medications Medications Dose Ordered Sig/Stanley Route Start Time Stop Time Status Last Admin Dose Admin Acetaminophen 325 mg Q4HP PRN PO 02/26/25 20:45 Ondansetron HCl 4 mg Q4HP PRN IV 02/26/25 20:45 Morphine Sulfate 2 mg Q4HPRN PRN IV 02/26/25 20:45 Nitroglycerin 0.4 mg Q5MINP PRN SL 02/26/25 20:45 Morphine Sulfate 2 mg Q30M PRN IV 02/26/25 20:45 Aspirin 81 mg DAILY PO 02/27/25 10:00 02/27/25 10:42 81 MG Atorvastatin Calcium 40 mg HS PO 02/27/25 22:00 02/27/25 22:06 40 MG Carvedilol 3.125 mg Q12HR PO 02/27/25 10:00 Ticagrelor 90 mg BID PO 02/27/25 10:00 02/27/25 22:05 90 MG Empaglifozin 10 mg DAILY PO 02/27/25 10:00 02/27/25 10:42 10 MG Losartan Potassium 25 mg DAILY PO 02/27/25 10:00 02/27/25 10:42 25 MG Pantoprazole Sodium 40 mg DAILY IV 02/27/25 10:00 02/27/25 10:43 40 MG Furosemide 20 mg DAILY PO 02/28/25 10:00 Diagnostic Test (Pha) 1 strip ACHS 02/28/25 11:30 Insulin Human Regular ACHS SC 02/28/25 11:30 Dextrose 50 ml UD PRN IV 02/28/25 08:30 Laboratory Results Laboratory Tests 02/28/25 04:32 Chemistry Test 02/28/25 04:32 Albumin 4.5 g/dL (3.2-4.8) Calcium Level 9.5 mg/dL (8.7-10.4) Total Protein 7.8 g/dL (5.7-8.2) LFT Test 02/28/25 04:32 Alanine Aminotransferase (ALT) 21 U/L (7-40) Alkaline Phosphatase 71 U/L (46-116) Aspartate Amino Transferase (AST) 70 U/L (13-40) H Total Bilirubin 1.4 mg/dL (0.2-1.0) H Microbiology Microbiology Date/Time Source Procedure Growth Status 02/27/25 01:21 Nose MRSA Screen - Final Complete Labs and/or images reviewed: Labs reviewed by me, Image(s) reviewed by me Assessment/Plan Assessment/Plan Impression: -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 Blood pressure stabilizing. Slight bump in creatinine -change Lasix to p.o. -continue dual antiplatelet therapy -continue statin -continue Coreg, Cozaar -regular insulin sliding scale -repeat labs in a.m. -transferred to telemetry floor Total time spent with patient discussing and formulating plan of care: 35 minutes. This medical document was created using an electronic medical record system with [employer] dictation system. Although this document has been carefully reviewed, there may still be some phonetic and typographical errors. These areas are purely typographical due to imperfections of the software programs, and do not reflect any compromise in the patient's medical care. Plan discussed with: Patient, Other (RN) My Orders Orders - VERÓNICA PECK [employer] Procedure Category Date Status Time Cardiac DIET 02/27/25 Transmitted Diet-2gna,Lofat,Lochol Lunch Furosemide Tablet PHA 02/28/25 In Process (Lasix Tablet) 10:00 Glucose Blood PHA 02/28/25 In Process (Accu-Chek Comfort 11:30 Insulin R (Human) PHA 02/28/25 In Process (Insulin R) 11:30 Dextrose 50% Syringe PHA 02/28/25 In Process 08:30 Chest Xray 1 View XY 02/28/25 Taken 08:16 Transfer Orders XFER 02/28/25 Transmitted 08:16 Date of Service: Feb 28, 2025 Billing Provider: VERÓNICA PECK NP Common Visit Codes: [id number] INP/OBS CARE(HIGH) VERÓNICA PECK NP Feb 28, 2025 09:17
--- NOTE | 2025-02-28 09:49 | DVH ---
CHEST RADIOGRAPH Indication: chf Technique: Single frontal view of the chest was obtained Comparison: XY CHEST PORTABLE on DOS: 02/26/25 FINDINGS: Lines and Tubes: None Lungs: No focal consolidation. Pleura: No effusion. No pneumothorax. Cardiomediastinal contours: Unremarkable Bones: No acute osseous abnormality. IMPRESSION: No acute cardiopulmonary disease.
[2025-02-28] MEDS: FUROSEMIDE 20 MG TAB PO SCH (09:53)
[2025-02-28] MEDS: ACCU-CHEK COMFORT CURVE STRIP VI SCH (11:30)
[2025-02-28] MEDS: InsuLIN REG 1unit/0.01ml Soln (100units/ml) SC SCH (12:21)
--- NOTE | 2025-02-28 23:49 | DVHPN2 ---
Progress Note - Dictate Date Seen: Feb 28, 2025 Medical Necessity Reason Pt with a Central, PICC or Fol: No Subjective Patient was seen and evaluated in follow up. Patient was downgraded to telemetry. Patient denies any current complaints. 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 Chest x-ray showed NAD. Telemetry reviewed. vital signs Vital Sign Date Time Temp Pulse Resp B/P (MAP) Pulse Ox O2 Delivery O2 Flow Rate FiO2 02/28/25 10:55 92 117/59 02/28/25 10:34 11 98 02/28/25 10:00 Room Air* 0 21 02/28/25 08:00 98.0 98.0 Total Intake and Output 02/27/25 02/27/25 02/28/25 15:00 23:00 07:00 Intake Total 480 ml 500 ml 250 ml Output Total 1300 ml 300 ml Balance 480 ml -800 ml -50 ml medications Current Medications Medications Dose Ordered Sig/Stanley Route Start Time Stop Time Status Last Admin Dose Admin Acetaminophen 325 mg Q4HP PRN PO 02/26/25 20:45 Ondansetron HCl 4 mg Q4HP PRN IV 02/26/25 20:45 Morphine Sulfate 2 mg Q4HPRN PRN IV 02/26/25 20:45 Nitroglycerin 0.4 mg Q5MINP PRN SL 02/26/25 20:45 Morphine Sulfate 2 mg Q30M PRN IV 02/26/25 20:45 Aspirin 81 mg DAILY PO 02/27/25 10:00 02/28/25 09:52 81 MG Atorvastatin Calcium 40 mg HS PO 02/27/25 22:00 02/27/25 22:06 40 MG Carvedilol 3.125 mg Q12HR PO 02/27/25 10:00 02/28/25 09:55 3.125 MG Ticagrelor 90 mg BID PO 02/27/25 10:00 02/28/25 09:52 90 MG Empaglifozin 10 mg DAILY PO 02/27/25 10:00 02/28/25 09:54 10 MG Losartan Potassium 25 mg DAILY PO 02/27/25 10:00 02/28/25 09:53 25 MG Pantoprazole Sodium 40 mg DAILY IV 02/27/25 10:00 02/28/25 09:51 40 MG Furosemide 20 mg DAILY PO 02/28/25 10:00 02/28/25 09:53 20 MG Diagnostic Test (Pha) 1 strip ACHS 02/28/25 11:30 02/28/25 11:30 1 STRIP Insulin Human Regular ACHS SC 02/28/25 11:30 02/28/25 12:21 3 UNITS Dextrose 50 ml UD PRN IV 02/28/25 08:30 objective GENERAL: Alert and oriented x 3. No acute distress. EYES: PERRL, EOMI. Anicteric. HENT: Moist mucous membranes. LUNGS: Clear to auscultation bilaterally. CARDIOVASCULAR: Regular rate and rhythm. ABDOMEN: Soft, non-tender and non-distended. EXTREMITIES: No edema. NEUROLOGIC: No focal neurological deficits. SKIN: Warm, dry. laboratory and microbiology Laboratory Tests 02/28/25 04:32 Test 02/28/25 04:32 Range/Units Serum Glucose 122 H 74-106 mg/dL Problem List Anterior STEMI. WILLIE. Diabetes [id number]. Current tobacco dependence. Assessment/Plan Continued all current supportive medical care. Aspirin,Brilinta. Coreg, Losartan. GI prophylactics. Diuretics with Lasix. Nitro SL. Morphine for pain management. Additional plan as per the hospital course. Plan discussed with: Patient ANDREW BHATT MD Feb 28, 2025 13:18
[2025-03-01] VITALS (7 sets, daily range): BP systolic 101–124; BP diastolic 62–79; PULSE 61–84; RESP 15–18; TEMP 97.7–97.8; O2SAT 95–98
[2025-03-01 05:45] LABS: Chloride 104 mmol/L (98-107); Potassium 4.1 mmol/L (3.5-5.1); Sodium 137 mmol/L (136-145)
[2025-03-01 05:46] LABS: Anion Gap 12 (5-15); Calcium 9.7 mg/dL (8.7-10.4); Carbon Dioxide 21 mmol/L (20-31)
[2025-03-01 05:51] LABS: BUN/Creatinine Ratio 15.9 (10.0-20.0); Glucose 114 mg/dL (74-106)
[2025-03-01 05:52] LABS: Blood Urea Nitrogen 25 mg/dL (9-23); Magnesium 2.3 mg/dL (1.6-2.6)
--- NOTE | 2025-03-01 12:05 | DVHSR ---
APPROVED REPORT EXAM: Two-dimensional and M-mode echocardiogram with Doppler, color Doppler and Optison. Blood Pressure: 115/80 mmHg INDICATION NSTEMI RISK FACTORS Height: 5'11", Weight: 164 DIMENSIONS LVDd6.8 (3.8-5.7cm)LA (2D)4.7 (1.9-4.0cm)Aortic Root3.5 (2.0-3.7cm) LVDs6.4 (2.5-4.0cm)LA (MM) (1.9-4.0cm)Aortic Cusp Exc2.0 (1.5-2.0cm) EF (%) 14.0 (55-70%)Rt. Atrium3.2 (1.9-4.0cm)Asc. Aorta2.9 cm IVSd0.8 (0.7-1.1cm)RV (D)2.9 (1.8-2.4cm) PWd0.5 (0.7-1.1cm) Mitral Valve MitralMitral Stenosis E wave0.80m/sMV Mean GR.mmHg A wave0.75m/sMV Peak GR.mmHg E/A ratio1.12D MVAcm2 DECEL [id number] 1/2 Timems Aortic Valve Aortic ValveAortic Stenosis V10.91m/Marlene Mean GR.3mmHg V21.10m/Marlene Peak GR.5mmHg LVOT Diameter2.3 (1.8-2.4cm)Doppler AVA3.44cm2 Pulmonic Valve V20.57m/s Tricuspid Valve TR Velocity2.49m/s [id number] Conclusion LV IS REMARKABLY DILATED SEVERE ANTERIOR WALL HYPOKINESIS LV GLOBAL HYPOKINESIS LV EF IS ONLY 14% MODERATE DEGREE MR NORMAL VALVES NO EFFUSION
--- NOTE | 2025-03-01 14:35 | DVHDS2 ---
Discharge Summary Date of Admission Feb 26, 2025 at 20:34 Date of Discharge: Mar 01, 2025 Admitting Diagnosis STEMI involving anterior wall Labs/Diagnostic Data: Laboratory Results Test 03/01/25 11:40 03/01/25 04:51 02/28/25 04:32 02/27/25 04:30 POC Glucose 142 mg/dl (70-106) Sodium Level 137 mmol/L (136-145) Potassium Level 4.1 mmol/L (3.5-5.1) Chloride Level 104 mmol/L (98-107) Carbon Dioxide Level 21 mmol/L (20-31) Anion Gap 12 (5-15) Blood Urea Nitrogen 25 mg/dL (9-23) Creatinine 1.57 mg/dL (0.700-1.30) Glomerular Filtration Rate Calc 51 mL/min (>90) BUN/Creatinine Ratio 15.9 (10.0-20.0) Serum Glucose 114 mg/dL (74-106) Calcium Level 9.7 mg/dL (8.7-10.4) Magnesium Level 2.3 mg/dL (1.6-2.6) White Blood Count 10.4 10^3/uL (4.4-10.8) Red Blood Count 5.12 10^6/uL (4.5-5.90) Hemoglobin 16.3 g/dL (13.5-17.5) Hematocrit 46.1 % (41.0-53.0) Mean Corpuscular Volume 90.2 fL (80.0-100.0) Mean Corpuscular Hemoglobin 31.9 pg (28.0-32.0) Mean Corpuscular Hemoglobin Concent 35.4 g/dL (32.0-36.0) Red Cell Distribution Width 12.7 % (11.8-14.3) Platelet Count 212 10^3/uL (140-450) Mean Platelet Volume 8.4 fL (6.9-10.8) Neutrophils (%) (Auto) 63.6 % (37.0-80.0) Lymphocytes (%) (Auto) 22.4 % (10.0-50.0) Monocytes (%) (Auto) 9.6 % (0.0-12.0) Eosinophils (%) (Auto) 3.7 % (0.0-7.0) Basophils (%) (Auto) 0.7 % (0.0-2.0) Neutrophils # (Auto) 6.6 10 ^3/uL (1.6-8.6) Lymphocytes # (Auto) 2.3 10 ^3/uL (0.4-5.4) Monocytes # (Auto) 1.0 10 ^3/uL (0-1.3) Eosinophils # (Auto) 0.4 10 ^3/uL (0-0.8) Basophils # (Auto) 0.1 10 ^3/uL (0-0.2) Nucleated Red Blood Cells 0.2 % Total Bilirubin 1.4 mg/dL (0.2-1.0) Aspartate Amino Transferase (AST) 70 U/L (13-40) Alanine Aminotransferase (ALT) 21 U/L (7-40) Alkaline Phosphatase 71 U/L (46-116) Total Protein 7.8 g/dL (5.7-8.2) Albumin 4.5 g/dL (3.2-4.8) Troponin I High Sensitivity > 59690 ng/L (</=54) Test 02/26/25 20:56 02/26/25 19:23 Prothrombin Time 11.1 sec (9.3-11.8) Prothrombin Time INR 1.05 (0.9-1.15) Activated Partial Thromboplast Time 29.3 SEC (24.5-34.5) Hemoglobin A1c 6.6 % A1C (<5.7) Lactic Acid Level 1.4 mmol/L (0.4-2.0) Phosphorus Level 2.7 mg/dL (2.4-5.1) Triglycerides Level 99 mg/dL (< 150) Cholesterol Level 210 mg/dL (< 200) LDL Cholesterol 172 mg/dL (< 100) HDL Cholesterol 33 mg/dL (40-59) Vitamin B12 Level 356 pg/mL (211-911) Vitamin D 25-Hydroxy 23.4 ng/mL (30.0-100) Thyroid Stimulating Hormone (TSH) 2.20 uIU/mL (0.55-4.78) D-Dimer, Quantitative 0.41 mg/L FEU (0.0-0.49) Lipase 30 U/L (12-53) Other Laboratory Tests 03/01/25 04:51 02/28/25 04:32 Brief Hx & Hospital Course: History of Present Illness Kang Ch 55-year-old male patient who presents to the ED with chief complaint of nonradiating, retrosternal oppressive chest pain which started on 02/26/2025 at 8:00 a.m. in functional class four, intensity 10/10, with no relieving factors, associated with diaphoresis, dizziness and dyspnea. His pain has been constant throughout the day, but decreasing in intensity, he decided to visit the ED at 7:20 p.m. after discussing with family. Patient does report presenting similar symptoms approximately three months ago, with same characteristics but less intensity and intermittent, he has not seek medical advice previously. EKG was completed which showed ST-elevation in anterior leads associated with deep Q waves, troponin approximately 22946, cardiology consulted and called code STEMI. Denies any other associated symptoms Course of hospitalization: Cardiac catheterization revealed disease to his RCA as well as STEMI involving his LAD. Patient had successful PTCA and stent placement to his LAD. Echocardiogram reveals ejection fraction of 14%. Patient was continued on dual antiplatelet therapy with Brilinta and aspirin, as well as initiation of guideline directed medical therapy with Toprol-XL, Cozaar, and Jardiance. Spironolactone will be held at this time given patient's marginal blood pressure. Patient is now ambulating, with dyspnea improved. Long discussion was made with the patient's son-in-law who is a cardiac anesthesiologist in [place] regarding findings of left heart catheterization, echocardiogram, as well as providing plan of care for the patient. Patient has been cleared for discharge by Cardiology. He has been tolerating beta annelise, LJ inhibitor, Jardiance therapy. Patient will follow up with the discharge Clinic in one week until [facility] Patient will also follow up with Dr. Marrero in 1-2 weeks. He will be continued on the previously mentioned medications as well as restarting all of his home antidiabetic medications. Education was given on the need to stop smoking. Patient verbalized understanding. All questions answered. Physical examination General: Alert and Oriented x3. No acute distress. Well-nourished. Eyes: EOMI. Anicteric. HENT: Moist mucous membranes. Lungs: Clear to auscultation bilaterally. No accessory muscle use. Cardiovascular: Regular rate and rhythm. No murmur. No JVD. Abdomen: Soft, non-tender and non-distended. No palpable masses. Extremities: No edema. Non-tender. Skin: No rashes or lesions. Warm. Neurologic: No focal neurological deficits. CN II-XII grossly intact, but not individually tested. Psychiatric: Cooperative. Appropriate mood and affect. Total time spent with patient discussing and formulating plan of care: 35 minutes. This medical document was created using an electronic medical record system with [employer] dictation system. Although this document has been carefully reviewed, there may still be some phonetic and typographical errors. These areas are purely typographical due to imperfections of the software programs, and do not reflect any compromise in the patient's medical care. Consults/Reason for consult Cardiology: STEMI Condition at Discharge: Fair Final Diagnosis/Problems List STEMI involving LAD -multivessel disease with RCA disease -nicotine dependence -diabetes mellitus -acute systolic heart failure Discharge Disposition: Home Discharge Instruct/Medications Diet: Cardiac 2g Na,low cholest Activity: No Restrictions, As Tolerated Follow Up/Referral: Discharge Clinic in one week Follow up with rehab aid, Dr. Marrero in 1-2 weeks Medications: Carvedilol 3.125 mg p.o. b.i.d. Cozaar 25 mg p.o. daily Aspirin 81 mg p.o. daily Brilinta 90 mg p.o. b.i.d. Jardiance 10 mg p.o. daily 36 Discharge Statement: "Patient was advised to return to the ER or call 911 if any headaches, dizziness, shortness of breath, chest pain, abdominal pain, bleeding, fevers, or worsening of medical condition. Patient was counseled about treatment plan, medications, possible side effects, patientverbalized understanding. All questions were answered to the best of my ability. This discharge took greater then 30 minutes in planning, reviewing documentation, counseling the patient, and discussing with other team members." ASSESSMENT ASSESSMENT Assessment STEMI involving LAD Date of Service: Mar 01, 2025 Billing Provider: VERÓNICA PECK NP Common Visit Codes: [id number]/[id number] DISCH DAY >30min VERÓNICA PECK NP Mar 01, 2025 14:35
[2025-03-01] MEDS ORDERED: CARV3.1240 PO (14:41)
[2025-03-01] MEDS ORDERED: TICA90TA PO (14:41)
[2025-03-01] MEDS ORDERED: EMPA1TAB PO (14:41)
[2025-03-01] MEDS ORDERED: LOS25T PO (14:41)
[2025-03-01] MEDS ORDERED: ASPI1TAB20 PO (14:41)
--- NOTE | 2025-03-01 22:18 | DVHPN2 ---
Progress Note - Dictate Date Seen: Mar 01, 2025 Medical Necessity Reason Pt with a Central, PICC or Fol: No Subjective Patient was seen and evaluated in follow up. Patient has no new complaints at this time. Patient denies any cardiac symptoms. Patient is cardiac stable for discharge. Telemetry reviewed. vital signs Vital Sign Date Time Temp Pulse Resp B/P (MAP) Pulse Ox O2 Delivery O2 Flow Rate FiO2 03/01/25 11:32 103/74 03/01/25 11:31 68 03/01/25 08:36 97.7 18 98 97.7 02/28/25 20:00 Room Air* 0 21 Total Intake and Output 02/28/25 02/28/25 03/01/25 15:00 23:00 07:00 Intake Total 600 ml Balance 600 ml medications Current Medications Medications Dose Ordered Sig/Stanley Route Start Time Stop Time Status Last Admin Dose Admin Acetaminophen 325 mg Q4HP PRN PO 02/26/25 20:45 Ondansetron HCl 4 mg Q4HP PRN IV 02/26/25 20:45 Morphine Sulfate 2 mg Q4HPRN PRN IV 02/26/25 20:45 Nitroglycerin 0.4 mg Q5MINP PRN SL 02/26/25 20:45 Morphine Sulfate 2 mg Q30M PRN IV 02/26/25 20:45 Aspirin 81 mg DAILY PO 02/27/25 10:00 03/01/25 11:32 81 MG Atorvastatin Calcium 40 mg HS PO 02/27/25 22:00 02/28/25 21:31 40 MG Carvedilol 3.125 mg Q12HR PO 02/27/25 10:00 03/01/25 11:31 3.125 MG Ticagrelor 90 mg BID PO 02/27/25 10:00 03/01/25 11:31 90 MG Empaglifozin 10 mg DAILY PO 02/27/25 10:00 03/01/25 11:32 10 MG Losartan Potassium 25 mg DAILY PO 02/27/25 10:00 03/01/25 11:31 25 MG Pantoprazole Sodium 40 mg DAILY IV 02/27/25 10:00 03/01/25 11:30 40 MG Furosemide 20 mg DAILY PO 02/28/25 10:00 03/01/25 11:32 20 MG Diagnostic Test (Pha) 1 strip ACHS 02/28/25 11:30 03/01/25 11:45 1 STRIP Insulin Human Regular ACHS SC 02/28/25 11:30 03/01/25 11:47 2 UNITS Dextrose 50 ml UD PRN IV 02/28/25 08:30 objective GENERAL: Alert and oriented x 3. No acute distress. EYES: PERRL, EOMI. Anicteric. HENT: Moist mucous membranes. LUNGS: Clear to auscultation bilaterally. CARDIOVASCULAR: Regular rate and rhythm. ABDOMEN: Soft, non-tender and non-distended. EXTREMITIES: No edema. NEUROLOGIC: No focal neurological deficits. SKIN: Warm, dry. laboratory and microbiology Laboratory Tests 03/01/25 04:51 02/28/25 04:32 Test 03/01/25 04:51 Range/Units Serum Glucose 114 H 74-106 mg/dL Problem List Anterior STEMI. WILLIE. Diabetes [id number]. Current tobacco dependence. Assessment/Plan Continued all current supportive medical care. Aspirin, Brilinta. Coreg, Losartan. GI prophylactics. Diuretics with Lasix. Nitro SL. Morphine for pain management. Additional plan as per the hospital course. Plan discussed with: Patient ANDREW BHATT MD Mar 01, 2025 12:58
== END 2025-03-01 18:36 | disposition home or self-care (01) | DRG 174 ==
LOC: ER 19:13 → OVERFLOW 20:34 → ICU CENTRL 02-27 01:06 → TELE-WESTW 02-28 10:46
PROVIDERS: ADMIT Nurse Practitioner Acute Care; ATTEND Nurse Practitioner Acute Care
PROC: 4A023N7 Measurement of Cardiac Sampling and Pressure, Left Heart, Percutaneous Approach (ICD-10-PCS; principal; 2025-02-26)
PROC: 027035Z Dilation of Coronary Artery, One Artery with Two Drug-eluting Intraluminal Devices, Percutaneous Approach (ICD-10-PCS; 2025-02-26)
PROC: B211YZZ Fluoroscopy of Multiple Coronary Arteries using Other Contrast (ICD-10-PCS; 2025-02-26)
PROC: B215YZZ Fluoroscopy of Left Heart using Other Contrast (ICD-10-PCS; 2025-02-26)
PROC: B240ZZ3 Ultrasonography of Single Coronary Artery, Intravascular (ICD-10-PCS; 2025-02-26)
PROC: 02C03ZZ Extirpation of Matter from Coronary Artery, One Artery, Percutaneous Approach (ICD-10-PCS; 2025-02-26)
PROC: 3E073PZ Introduction of Platelet Inhibitor into Coronary Artery, Percutaneous Approach (ICD-10-PCS; 2025-02-26)
DX: I21.02 ST elevation (STEMI) myocardial infarction involving left anterior descending coronary artery (principal); I50.21 Acute systolic (congestive) heart failure; E11.9 Type 2 diabetes mellitus without complications; F17.200 Nicotine dependence, unspecified, uncomplicated
CPT/HCPCS: 36415; 71045; 80048; 80053; 80061; 82306; 82607; 82962; 83036; 83605; 83690; 83735; 84100; 84443; 84484; 85025; 85379; 85610; 85730; 87081; 92941; 92973; 92975; 92978; 93005; 93306; 93458; 96361; 96365; 96375; 99152; G0378; J1815; J2250; J2470; Q9956; Q9967